=== PATIENT | female | born 1970 | race African-American/Black ===

== ENCOUNTER 2017-05-17 19:42 | Emergency (ER) | payer OTHER ==
[~2017-05-17] VITALS: Ht 170.2 cm; Wt 101.8 kg
[~2017-05-17 19:42] MED LIST: COLACE100 MG PO; FLEXERIL10 MG PO; LISINOPRIL-HCT1 EACH PO; LORTAB 5-325 M1 EACH PO; MEDROL DOSEPAK4 MG PO; PREDNISONE50 MG PO
[2017-05-17 19:54] VITALS: BP 162/90
== END 2017-05-17 21:14 | disposition home or self-care (01) ==
LOC: EXP 19:42 → EME 19:42 → EXP 21:14
DX: S93.402A Sprain of unspecified ligament of left ankle, initial encounter (principal); X50.1XXA Overexertion from prolonged static or awkward postures, initial encounter
CPT/HCPCS: 73610; 99281; 99283

== ENCOUNTER 2018-04-07 19:57 | Emergency (ER) | payer OTHER ==
[~2018-04-07] VITALS: Ht 170.2 cm; Wt 106.1 kg
[2018-04-07 21:35] VITALS: BP 135/89
== END 2018-04-07 21:35 | disposition home or self-care (01) ==
LOC: EME 19:57
DX: S63.502A Unspecified sprain of left wrist, initial encounter (principal); W10.9XXA Fall (on) (from) unspecified stairs and steps, initial encounter
CPT/HCPCS: 73110; 99281; 99284